=== PATIENT | female | born 1980 ===

== ENCOUNTER → 2024-09-05 | Outpatient (CLI) | payer OTHER ==
[~2024-09-05] MED LIST: HYDR1TAB94 PO; INSULANI SC; METF500 PO
[2024-09-05 12:17] LABS: BASOPHILS ABSOLUTE AUTO 0.04 K/mm3 (0.00-0.23); BASOPHILS PERCENT AUTO 0 % (0-2); EOSINOPHILS ABSOLUTE AUTO 0.23 K/mm3 (0.00-0.68); EOSINOPHILS PERCENT AUTO 2 % (0-6); Hematocrit 40.9 % (33.0-51.0); IMMATURE GRAN ABSOLUTE AUTO 0.05 K/mm3 (0.00-0.10); IMMATURE GRAN PERCENT AUTO 0 % (0-1); LYMPHOCYTES ABSOLUTE AUTO 3.96 K/mm3 (0.84-5.20); LYMPHOCYTES PERCENT AUTO 33 % (21-46); MONOCYTES ABSOLUTE AUTO 0.59 K/mm3 (0.16-1.47); MONOCYTES PERCENT AUTO 5 % (4-13); Mean Corpuscular HGB 29.2 pg (26.0-34.0); Mean Corpuscular HGB Conc 34.2 g/dL (31.5-36.5); Mean Corpuscular Volume 85 fL (80-100); Mean Platelet Volume 9.1 fL (9.1-12.4); NEUTROPHILS ABSOLUTE AUTO 6.99 K/mm3 (1.96-9.15); NEUTROPHILS PERCENT AUTO 59 % (41-73); Platelet Count 335 K/mm3 (150-400); RDW Coefficient Variation 12.2 % (11.7-14.2); RDW Standard Deviation 37.6 fL (35.1-46.3); White Blood Cell Count 11.86 K/mm3 (4.00-11.30)
[2024-09-05 12:26] LABS: Albumin, Blood 3.2 g/dL (3.4-5.0); Albumin/Globulin Ratio 0.7 (0.8-1.8); Bilirubin, Total 0.7 mg/dL (0.1-1.0); Bun/Creatinine Ratio 19.3 (12.0-20.0); Creatinine, Blood 0.57 mg/dL (0.40-1.00); Globulin, Blood 4.7 g/dL (2.2-4.0); Potassium, Blood 4.4 mmol/L (3.5-5.5); Total Protein, Blood 7.9 g/dL (6.4-8.2)
== END | disposition home or self-care (01) ==
LOC: EDBD 12:12 → LAB SHORT 12:12 → LAB 12:12
PROVIDERS: Family Medicine
DX: R10.11 Right upper quadrant pain (principal)
CPT/HCPCS: 80053; 83690; 85025

== ENCOUNTER 2024-09-06 08:47 | Observation (INO) | payer OTHER ==
[~2024-09-06] VITALS: Ht 162.6 cm; Wt 97.2 kg
[2024-09-06 10:22] LABS: BASOPHILS ABSOLUTE AUTO 0.04 K/mm3 (0.00-0.23); BASOPHILS PERCENT AUTO 0 % (0-2); EOSINOPHILS ABSOLUTE AUTO 0.16 K/mm3 (0.00-0.68); EOSINOPHILS PERCENT AUTO 1 % (0-6); Hematocrit 40.8 % (33.0-51.0); Hemoglobin 13.5 g/dL (11.5-16.0); IMMATURE GRAN ABSOLUTE AUTO 0.04 K/mm3 (0.00-0.10); IMMATURE GRAN PERCENT AUTO 0 % (0-1); LYMPHOCYTES ABSOLUTE AUTO 3.67 K/mm3 (0.84-5.20); LYMPHOCYTES PERCENT AUTO 33 % (21-46); MONOCYTES ABSOLUTE AUTO 0.56 K/mm3 (0.16-1.47); MONOCYTES PERCENT AUTO 5 % (4-13); Mean Corpuscular HGB 28.8 pg (26.0-34.0); Mean Corpuscular HGB Conc 33.1 g/dL (31.5-36.5); Mean Corpuscular Volume 87 fL (80-100); NEUTROPHILS ABSOLUTE AUTO 6.71 K/mm3 (1.96-9.15); NEUTROPHILS PERCENT AUTO 60 % (41-73); Platelet Count 345 K/mm3 (150-400); RDW Coefficient Variation 12.3 % (11.7-14.2); RDW Standard Deviation 39.2 fL (35.1-46.3); Red Blood Cell Count 4.69 M/mm3 (3.80-5.20); White Blood Cell Count 11.18 K/mm3 (4.00-11.30)
[2024-09-06] MEDS ORDERED: METF500 PO (10:34)
[2024-09-06] MEDS ORDERED: INSULANI SC (10:34)
[2024-09-06 10:51] LABS: Albumin, Blood 3.2 g/dL (3.4-5.0); Albumin/Globulin Ratio 0.7 (0.8-1.8); Bilirubin, Total 1.1 mg/dL (0.1-1.0); Bun/Creatinine Ratio 23.4 (12.0-20.0); Calcium, Blood 9.3 mg/dL (8.5-10.1); Creatinine, Blood 0.39 mg/dL (0.40-1.00); Globulin, Blood 4.3 g/dL (2.2-4.0); Potassium, Blood 4.7 mmol/L (3.5-5.5); Total Protein, Blood 7.5 g/dL (6.4-8.2)
[2024-09-06] MEDS ORDERED: Ketorolac Tromethamine 15mg Vial IV ONE (12:00)
[2024-09-06] MEDS ORDERED: NS 1,000 ML IV SCH ×3 (15:25→20:25)
[2024-09-06] MEDS ORDERED: Ondansetron HCl 2 MG / ML 2ML Vial IV PRN (20:25)
[2024-09-06] MEDS ORDERED: FLU VACC TS2024-25(6MOS UP)/PF 45 MCG/0.5 ML SYRINGE IM SCH (20:30)
[2024-09-06] MEDS ORDERED: FentaNYL Citrate 50 MCG/ML 2 ML Injection IV PRN (20:30)
[2024-09-06] MEDS ORDERED: Insulin Glargine-Yfgn 100 Unit/mL 3 ML SYR SC SCH (21:00)
[2024-09-06 21:34] VITALS: BP 116/80
[2024-09-07] VITALS (20 sets, daily range): BP systolic 101–141; BP diastolic 62–86
[2024-09-07] MEDS ORDERED: Insulin Human Lispro 100 Units/ML 3ML Syringe SC SCH
[2024-09-07 04:38] LABS: Hematocrit 38.1 % (33.0-51.0); Hemoglobin 12.6 g/dL (11.5-16.0); Mean Corpuscular HGB 29.1 pg (26.0-34.0); Mean Corpuscular HGB Conc 33.1 g/dL (31.5-36.5); Mean Corpuscular Volume 88 fL (80-100); Mean Platelet Volume 9.1 fL (9.1-12.4); Platelet Count 314 K/mm3 (150-400); RDW Coefficient Variation 12.5 % (11.7-14.2); RDW Standard Deviation 40.5 fL (35.1-46.3); Red Blood Cell Count 4.33 M/mm3 (3.80-5.20); White Blood Cell Count 11.74 K/mm3 (4.00-11.30)
[2024-09-07 05:03] LABS: Albumin, Blood 2.7 g/dL (3.4-5.0); Albumin/Globulin Ratio 0.7 (0.8-1.8); Bilirubin, Total 1.2 mg/dL (0.1-1.0); Bun/Creatinine Ratio 19.8 (12.0-20.0); Calcium, Blood 8.5 mg/dL (8.5-10.1); Creatinine, Blood 0.41 mg/dL (0.40-1.00); Globulin, Blood 3.7 g/dL (2.2-4.0); Total Protein, Blood 6.4 g/dL (6.4-8.2)
--- NOTE | 2024-09-07 06:33 | NUR ---
PT ARRIVED TO UNIT APPROXIMATELY 2145 - AMBULATED TO BED WITH SBA. ROMANIAN SPEAKING, TEST ENG UTILIZED. ADMISSION ASSESSMENT COMPLETED, VSS. RUQ ABD PAIN X1 WITH PRN MEDICATION RELIEF - SEE EMAR FOR DETAILS. Q6 BLOOD SUGARS, NPO PENDING SURGERY EVALUATION TODAY. NO LONG ACTING INSULIN GIVEN DUE TO BORDERLINE LOW CBGS AND POOR INTAKE X4 DAYS + POTENTIAL PROLONGED NPO STATUS. EDUCATED PT ON S/S OF HYPO AND HYPERGLYCEMIA.
[2024-09-07] MEDS ORDERED: Lactated Ringer's 1,000 ML IV SCH (09:30)
--- NOTE | 2024-09-07 11:01 | NUR ---
PT TO OR AT 1052
--- NOTE | 2024-09-07 11:08 | NUR ---
History, Chart, Medications and Allergies reviewed before start of procedure. Pre-Op teaching done. Pt verbalizes understanding. PT IS BENGAL[place] SPEAKING ONLY. USED CATSHOVEL DRIVER PHONE TO EXCHANGE MEDICAL INFORMATION.
[2024-09-07] MEDS ORDERED: Indocyanine Green 25 MG Vial IV STA (11:13)
[2024-09-07] MEDS ORDERED: Rocuronium Bromide 10 MG/ML 5ML Injection IV ONE (11:17)
[2024-09-07] MEDS ORDERED: Metoclopramide HCl 5MG / ML 2ML Vial ONE (11:17)
[2024-09-07] MEDS ORDERED: Ondansetron HCl 2 MG / ML 2ML Vial ONE (11:17)
[2024-09-07] MEDS ORDERED: FentaNYL Citrate 50 MCG/ML 5 ML Injection ONE (11:18)
[2024-09-07] MEDS ORDERED: propofoL 20 ML IV ONE (11:18)
[2024-09-07] MEDS ORDERED: Sugammadex Sodium 200 MG/2ML SDV (100 MG/ML) ONE (11:18)
[2024-09-07] MEDS ORDERED: CefOXitin Sodium 2,000 MG in NS 50 ML IV SCH (11:28)
[2024-09-07] MEDS ORDERED: Bupivacaine 0.5% HCl 5 MG/ML 30MLVIAL ONE (11:28)
[2024-09-07] MEDS ORDERED: Ciprofloxacin 400MG/D5 200ML 200 ML IV SCH (11:45)
--- NOTE | 2024-09-07 11:51 | NUR ---
PT CELL PHONE PUT IN SMALL ZIP LOCK BAG, LABELED, AND PLACED IN PACU BY THIS RN.
[2024-09-07] MEDS ORDERED: FentaNYL Citrate 50 MCG/ML 2 ML Injection ONE (13:33)
[2024-09-07] MEDS ORDERED: Ketorolac Tromethamine 30mg Vial ONE (13:41)
[2024-09-07 17:27] LABS: Source, Urine Clean Catch
[2024-09-07 17:31] LABS: Appearance, Urine Clear (Clear); Bilirubin, Urine Neg (Neg); Blood, Urine 1+ (Neg); Color, Urine Yellow (P-Yellow); Glucose Qualitative, Urine 1+ (Neg); Ketones, Urine 3+ (Neg); Leukocyte Esterase, Urine Neg (Neg); Nitrite, Urine Neg (Neg); Protein, Urine 3+ (Neg); Specific Gravity, Urine 1.025 (1.003-1.022); Urobilinogen, Urine NORM (Normal)
[2024-09-07 17:50] LABS: Bacteria Few /hpf; Squamous Epithelial Cells Few /hpf (Few)
[2024-09-07 17:51] LABS: Hyaline Casts 0-2 /lpf (0-2)
--- NOTE | 2024-09-07 18:21 | NUR ---
POST OP:REPORT RECIEVED FROM SPINNING SUPERVISOR. PT TO UNIT AT ABOUT 1430. A/O, VSS, SURGICAL SITES WNL. VOCATIONAL AIDE PHONE USED. PT DENIES PAIN, N/V. ASKED TO USE CALL LIGHT FOR FIRST TIME OOB.
--- NOTE | 2024-09-07 18:22 | NUR ---
SUMMARY: NO ACUTE CHANGE SINCE POST OP VSS. PT ABLE TO EAT AND DRINK. PT HAS RATED PAIN 2/10. PT WALKED IN ROOM AND VOIDED. NO SAFETY CONCERNS.
[2024-09-07] MEDS ORDERED: DEXTROMETHORPHAN/BENZOCAINE 1 EACH LOZENGE MT PRN (22:20)
[2024-09-08] MEDS ORDERED: HYDROcodone 5-APAP 325 TAB PO PRN (00:05)
[2024-09-08] MEDS ORDERED: Insulin Human Lispro 100 Units/ML 3ML Syringe SC SCH (07:30)
[2024-09-08 07:41] VITALS: BP 90/61
--- NOTE | 2024-09-08 07:41 | NUR ---
SUMMARY PT TOLERATING PO,BRP FOR VOIDING,ABD DISTENDED BUT SOFT.LAP SITES DEVELOPING LIGHT BRUISING,MED X 1 WITH PO PAIN MEDS WITH REPORTED GOOD EFFECT.
[2024-09-08 10:48] VITALS: BP 107/71
[2024-09-08] MEDS ORDERED: Ketorolac Tromethamine 15mg Vial IV ONE (11:20)
[2024-09-08] MEDS ORDERED: HYDR1TAB94 PO (12:36)
[2024-09-08 13:55] VITALS: BP 142/94
--- NOTE | 2024-09-08 14:50 | NUR ---
DISCHARGE PT PROVIDED WITH WRITTEN AND VERBAL DISCHARGE INSTRUCTIONS. WELL SURVEYING ENGINEER USED TO PROVIDE DISCHARGE INSTRUCTIONS, WELL SURVEYING ENGINEER ID NUMBER [id number]. PT'S QUESTIONS WERE ANSWERED. PT REPORTED FEELING MILDLY NAUSEATED BUT HAS BEEN ABLE TO EAT AND PASS FLATUS. PRIOR TO DISCHARGE PT WAS GIVEN ZOFRAN FOR NAUSEA. DR. URBINA NOTIFIED OF NAUSEA, ZOFRAN ODT CALLED TO [facility]. LACKEY PRIOR TO DISCHARGE. PT AMBULATED OUT INDEPENDENTLY. PRESCRIPTION FOR PAIN MEDICATION PROVIDED TO PT.
== END 2024-09-08 14:35 | disposition home or self-care (01) ==
LOC: ER 08:47 → EDBD 08:47 → SURS 08:48 → ERHOLD 08:48 → SURS 21:16
PROVIDERS: Nurse Practitioner Acute Care; Physician Assistant; Surgery; ADMIT Internal Medicine
PROC: 0FT44ZZ Resection of Gallbladder, Percutaneous Endoscopic Approach (ICD-10-PCS; principal; 2024-09-07 11:00)
PROC: 8E0W4CZ Robotic Assisted Procedure of Trunk Region, Percutaneous Endoscopic Approach (ICD-10-PCS; principal; 2024-09-07 11:00)
DX: K80.12 Calculus of gallbladder with acute and chronic cholecystitis without obstruction (principal); K76.0 Fatty (change of) liver, not elsewhere classified; R16.0 Hepatomegaly, not elsewhere classified; E11.9 Type 2 diabetes mellitus without complications; Z79.84 Long term (current) use of oral hypoglycemic drugs; Z79.4 Long term (current) use of insulin; Z88.0 Allergy status to penicillin
CPT/HCPCS: 36415; 74177; 74181; 80053; 81001; 82947; 83690; 84703; 85025; 85027; 87086; 88304; 96374-59; 96375; 99285-25; A9270; G0378; J0744; J1815; J1885; J2405; J2704; J2765; J3010; J7030; J7120; Q9967